=== PATIENT | female | born 2000 | race African-American/Black ===

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

== ENCOUNTER 2018-07-21 17:04 | Emergency (ER) | payer SELFPAY ==
[~2018-07-21] VITALS: Ht 160 cm; Wt 53.5 kg
[~2018-07-21 17:04] MED LIST: FLUT9.9S NS; NAPR-683 PO; ONDA4TAB7 PO
[2018-07-21 17:29] VITALS: BP 113/57
--- NOTE | 2018-07-21 17:50 | PHYS DOC ---
Past Medical History Past Medical History: Anxiety Past Surgical History: No Surgical History Alcohol Use: Occasionally Drug Use: Marijuana Adult General Chief Complaint Chief Complaint: VAGINAL PROBLEM HPI HPI Patient is a 18 year old AA female who presents to the emergency room with complaints of low back pain, dysuria, and increased urinary frequency for the last 4 days. She denies any fever, irregular vaginal discharge, or vaginal odor. States that she was reading online and is worried that she may have pelvic inflammatory disease. She denies any abnormal menstrual cycles, states that she took a test this morning and it was negative. She denies any lower abdominal pain reports suprapubic pain that increases after urination. Review of Systems Review of Systems Constitutional: Denies fever or chills [] HENT: Denies nasal congestion or sore throat [] Respiratory: Denies cough or shortness of breath [] GI: Denies abdominal pain, nausea, vomiting, or diarrhea [] : Denies irregular vaginal discharge, vaginal bleeding, vaginal odor, or vaginal itching. Reports suprapubic pain, increased urinary frequency, and dysuria. Musculoskeletal: Reports low back pain Integument: Denies rash or skin lesions [] Neurologic: Denies headache, focal weakness or sensory changes [] All other systems were reviewed and found to be within normal limits, except as documented in this note. Allergies Allergies Allergies Coded Allergies Type Severity Reaction Last Updated Verified No Known Drug Allergies 09/09/17 No Physical Exam Physical Exam Constitutional: Well developed, well nourished, no acute distress, non-toxic appearance. [] HENT: Normocephalic, atraumatic, bilateral external ears normal, oropharynx moist, no oral exudates, nose normal. [] Eyes: PERRLA, conjunctiva normal, no discharge. [] Cardiovascular:Heart rate regular rhythm, no murmur [] Lungs & Thorax: Bilateral breath sounds clear to auscultation [] Abdomen: Bowel sounds normal, soft, no masses, no pulsatile masses; suprapubic tenderness with palpation Skin: Warm, dry, no erythema, no rash. [] Back: No tenderness, no CVA tenderness. [] Extremities: No cyanosis, no clubbing, ROM intact, no edema. [] Neurologic: Alert and oriented X 3, normal motor function, normal sensory function, no focal deficits noted. [] Psychologic: Affect normal, judgement normal, mood normal. [] Current Patient Data Vital Signs Vital Signs Date Time Temp Pulse Resp B/P (MAP) Pulse Ox O2 Delivery O2 Flow Rate FiO2 07/21/18 17:29 97.9 99 18 113/57 (75) 100 Room Air 97.9 Lab Values Laboratory Tests Test 07/21/18 17:39 07/21/18 17:43 Urine Collection Type Unknown Urine Color Yellow Urine Clarity Clear Urine pH 7.0 Urine Specific [place] 1.015 Urine Protein Negative mg/dL (NEG-TRACE) Urine Glucose (UA) Negative mg/dL (NEG) Urine Ketones (Stick) Negative mg/dL (NEG) Urine Blood Negative (NEG) Urine Nitrite Negative (NEG) Urine Bilirubin Negative (NEG) Urine Urobilinogen Dipstick 1.0 mg/dL (0.2 mg/dL) Urine Leukocyte Esterase Moderate (NEG) Urine RBC 0 /HPF (0-2) Urine WBC 11-20 /HPF (0-4) Urine Squamous Epithelial Cells Mod /LPF Urine Amorphous Sediment Present /HPF Urine Bacteria Few /HPF (0-FEW) POC Urine HCG, Qualitative Hcg negative (Negative) EKG EKG [] Radiology/Procedures Radiology/Procedures [] Course & Med Decision Making Course & Med Decision Making Pertinent Labs and Imaging studies reviewed. (See chart for details) DX: UTI Prescription written for bactrim DS and pyridium. Increase clear fluids, avoid bladder irritants. Follow up with PCP if symptoms persist, return to ER if symptoms worsen. [] Dragon Disclaimer Dragon Disclaimer This electronic medical record was generated, in whole or in part, using a voice recognition dictation system. Departure Departure Impression: Primary Impression: UTI (urinary tract infection) Disposition: 01 HOME, SELF-CARE Condition: STABLE Referrals: NO PCP (PCP) Patient Instructions: Urinary Tract Infection, [id number] Additional Instructions: Increase clear fluids, avoid bladder irritants such as caffeine, carbonation, and spicy foods. Fill prescriptions and use as directed. Follow-up with primary care doctor if her symptoms persist. Return to the ER if symptoms worsen. Scripts Phenazopyridine Hcl (PYRIDIUM) 100 Mg Tablet 100 MG PO TID for 3 Days, #9 TAB 0 Refills Prov: BHUPINDER MCDERMOTT APRN 07/21/18 Sulfamethoxazole/Trimethoprim (BACTRIM DS TABLET) 1 Each Tablet 1 TAB PO BID for 3 Days, #6 TAB Prov: BHUPINDER MCDERMOTT SYSTEMATIC THEOLOGY PROFESSOR 07/21/18 Problem Qualifiers Primary Impression: UTI (urinary tract infection) Urinary tract infection type: site unspecified Hematuria presence: without hematuria Qualified Codes: N39.0 - Urinary tract infection, site not specified BHUPINDER MCDERMOTT SYSTEMATIC THEOLOGY PROFESSOR Jul 21, 2018 17:50
[2018-07-21 17:55] LABS: BILIRUBIN,URINE NEGATIVE (NEG); CLARITY,URINE CLEAR; COLOR,URINE YELLOW; NITRITE,URINE NEGATIVE (NEG); PROTEIN,URINE NEGATIVE (NEG-TRACE)
[2018-07-21 18:08] LABS: AMORPHOUS SEDIMENT,UR PRESENT /HPF; BACTERIA,URINE FEW /HPF (0-FEW); RBC,URINE 0 /HPF (0-2); SQUAMOUS EPITHELIAL CELL,UR MOD /LPF
[2018-07-21] MEDS ORDERED: SULF1TAB24 PO (18:24)
[2018-07-21] MEDS ORDERED: PHEN100T82 PO (18:24)
== END 2018-07-21 19:24 | disposition home or self-care (01) ==
LOC: ER 17:04
DX: N39.0 Urinary tract infection, site not specified (principal)
CPT/HCPCS: 81001; 81025; 87086; 99284

== ENCOUNTER 2018-09-16 09:30 | Emergency (ER) | payer SELFPAY ==
[~2018-09-16] VITALS: Ht 157.5 cm; Wt 56.7 kg
[~2018-09-16 09:30] MED LIST changes: +PHEN100T82 PO; +SULF1TAB24 PO
[2018-09-16 09:32] VITALS: BP 105/55
[2018-09-16] MEDS ORDERED: AZITHROMYCIN 250 MG TABLET. PO ONE (10:45)
[2018-09-16] MEDS ORDERED: cefTRIAXone IM 250 MG VIAL IM ONE (10:45)
[2018-09-16 10:53] LABS: BILIRUBIN,URINE NEGATIVE (NEG); CLARITY,URINE CLEAR; COLOR,URINE YELLOW; NITRITE,URINE NEGATIVE (NEG); PH,URINE 6.5; PROTEIN,URINE NEGATIVE (NEG-TRACE)
[2018-09-16 10:57] LABS: BACTERIA,URINE MODERATE /HPF (0-FEW); RBC,URINE 0 /HPF (0-2); SQUAMOUS EPITHELIAL CELL,UR FEW /LPF
[2018-09-16] MEDS ORDERED: SULF1TAB24 PO (11:37)
--- NOTE | 2018-09-16 11:38 | PHYS DOC ---
Past Medical History Past Medical History: No Pertinent History, Anxiety Past Surgical History: No Surgical History Additional Information: 2 ppd Alcohol Use: Rarely Drug Use: Marijuana Adult General Chief Complaint Chief Complaint: PAIN ON URINATION [facility] HPI Patient is a 18 year old female who presents with pain with urination, sores around her vagina and vaginal discharge. She denies abdominal pain or fever. She denies nausea or vomiting. She denies possibility of . Review of Systems Review of Systems Constitutional: Denies fever or chills [] Respiratory: Denies cough or shortness of breath [] Cardiovascular: No additional information not addressed in HPI [] GI: See history of present illness : See history of present illness Musculoskeletal: Denies back pain or joint pain [] Integument: Denies rash or skin lesions [] Neurologic: Denies headache, focal weakness or sensory changes [] Endocrine: Denies polyuria or polydipsia [] All other systems were reviewed and found to be within normal limits, except as documented in this note. Current Medications Current Medications Current Medications Medications (Trade) Dose Ordered Sig/Elliot Start Time Stop Time Status Last Admin Dose Admin Azithromycin (Zithromax) 1,000 mg 1X ONCE 09/16/18 10:45 09/16/18 10:46 DC 09/16/18 10:52 1,000 MG Ceftriaxone Sodium (Rocephin Im) 250 mg 1X ONCE 09/16/18 10:45 09/16/18 10:46 DC 09/16/18 10:52 250 MG Allergies Allergies Allergies Coded Allergies Type Severity Reaction Last Updated Verified No Known Drug Allergies 09/09/17 No Physical Exam Physical Exam Constitutional: Well developed, well nourished, no acute distress, non-toxic appearance. [] Cardiovascular:Heart rate regular rhythm, no murmur [] Lungs & Thorax: Bilateral breath sounds clear to auscultation [] Abdomen: Bowel sounds normal, soft, no tenderness, no masses, no pulsatile masses. [] Skin: Warm, dry, no erythema, no rash. [] Back: No tenderness, no CVA tenderness. [] Extremities: No tenderness, no cyanosis, no clubbing, ROM intact, no edema. [] Neurologic: Alert and oriented X 3, normal motor function, normal sensory function, no focal deficits noted. [] Psychologic: Affect normal, judgement normal, mood normal. [] Current Patient Data Vital Signs Vital Signs Date Time Temp Pulse Resp B/P (MAP) Pulse Ox O2 Delivery O2 Flow Rate FiO2 09/16/18 09:32 99.1 109 20 105/55 (72) 98 Room Air 99.1 Lab Values Laboratory Tests Test 09/16/18 09:40 09/16/18 09:50 Urine Collection Type Void Urine Color Yellow Urine Clarity Clear Urine pH 6.5 Urine Specific [place] 1.025 Urine Protein Negative mg/dL (NEG-TRACE) Urine Glucose (UA) Negative mg/dL (NEG) Urine Ketones (Stick) 15 mg/dL (NEG) Urine Blood Negative (NEG) Urine Nitrite Negative (NEG) Urine Bilirubin Negative (NEG) Urine Urobilinogen Dipstick 2.0 mg/dL (0.2 mg/dL) Urine Leukocyte Esterase Small (NEG) Urine RBC 0 /HPF (0-2) Urine WBC 11-20 /HPF (0-4) Urine Squamous Epithelial Cells Few /LPF Urine Bacteria Moderate /HPF (0-FEW) Urine Mucus Mod /LPF POC Urine HCG, Qualitative Hcg negative (Negative) Microbiology 09/16/18 Wet Prep - Final, Complete EKG EKG [] Radiology/Procedures Radiology/Procedures [] Pelvic Exam: Printer Technician present Abdomen: Nontender External Genitalia: Small vesicular lesions Speculum: Normal vaginal mucosa, yellow green cervical discharge Bimanual: No adnexal masses or tenderness, No CMT Course & Med Decision Making Course & Med Decision Making Pertinent Labs and Imaging studies reviewed. (See chart for details) []The patient was given Rocephin and Zithromax in the emergency department. Dragon Disclaimer Dragon Disclaimer This electronic medical record was generated, in whole or in part, using a voice recognition dictation system. Departure Departure Impression: Primary Impression: UTI (urinary tract infection) Additional Impression: STD exposure Referrals: NO PCP (PCP) Patient Instructions: Urinary Tract Infection Additional Instructions: We will call with the results of your cultures. Take the antibiotic as directed for treatment of your urinary tract infection. Follow-up with your primary care provider or return to the emergency department if worsening. Scripts Sulfamethoxazole/Trimethoprim (BACTRIM DS TABLET) 1 Each Tablet 1 TAB PO BID for UTI, #14 TAB Prov: DANY SUAREZ APRN 09/16/18 Problem Qualifiers DANY SUAREZ APRN Sep 16, 2018 11:38
[2018-09-17 13:19] LABS: GC PROBE Negative (Negative)
== END 2018-09-16 11:38 | disposition home or self-care (01) ==
LOC: ER 09:30
DX: N39.0 Urinary tract infection, site not specified (principal); F41.9 Anxiety disorder, unspecified; Z20.2 Contact with and (suspected) exposure to infections with a predominantly sexual mode of transmission
CPT/HCPCS: 81001; 81025; 87086; 87252; 87491; 87591; 96372; 99283; J0696; Q0111; Q0144

== ENCOUNTER 2020-02-15 15:22 | Emergency (ER) | payer SELFPAY ==
[~2020-02-15] VITALS: Ht 160 cm; Wt 51.3 kg
--- NOTE | 2020-02-15 16:24 | PHYS DOC ---
Past Medical History Past Medical History: Anxiety Past Surgical History: No Surgical History Smoking Status: Current Every Day Smoker Additional Information: PT REPORTS 2 CIGARETTES/ DAY Alcohol Use: None Drug Use: Marijuana General Adult EDM: Chief Complaint: ABDOMINAL PAIN IN HPI: HPI: Patient is a 20 year old female who presents to ER today for evaluation of left-sided abdominal pain started 2 days ago. Patient says she is about 7 weeks , her last menstrual period Was on December 05. This is her third . Patient has not seen an [facility] doctor yet. Patient denies any nausea vomiting, no fever. Patient denies any chest pain, no trouble breathing. Patient denies any vaginal bleeding. Review of Systems: Review of Systems: Constitutional: Denies fever or chills. [] Eyes: Denies change in visual acuity. [] HENT: Denies nasal congestion or sore throat. [] Respiratory: Denies cough or shortness of breath. [] Cardiovascular: Denies chest pain or edema. [] GI: Denies abdominal pain, nausea, vomiting, bloody stools or diarrhea. [] : No vaginal bleeding, no vaginal discharge, positive for left-sided pelvic pain. [] Musculoskeletal: Denies back pain or joint pain. [] Integument: Denies rash. [] Neurologic: Denies headache, focal weakness or sensory changes. [] Endocrine: Denies polyuria or polydipsia. [] Lymphatic: Denies swollen glands. [] Psychiatric: Denies depression or anxiety. [] Heart Score: Risk Factors: Risk Factors: DM, Current or recent (<one month) smoker, HTN, HLP, family history of CAD, obesity. Risk Scores: Score 0 - 3: 2.5% MACE over next 6 weeks - Discharge Home Score 4 - 6: 20.3% MACE over next 6 weeks - Admit for Clinical Observation Score 7 - 10: 72.7% MACE over next 6 weeks - Early Invasive Strategies Allergies: Allergies: Allergies Coded Allergies Type Severity Reaction Last Updated Verified No Known Drug Allergies 09/09/17 No Physical Exam: PE: Constitutional: Well developed, well nourished, no acute distress, non-toxic appearance. [] HENT: Normocephalic, atraumatic, bilateral external ears normal, oropharynx moist, no oral exudates, nose normal. [] Eyes: PERRLA, EOMI, conjunctiva normal, no discharge. [] Neck: Normal range of motion, no tenderness, supple, no stridor. [] Cardiovascular:Heart rate regular rhythm, no murmur [] Lungs & Thorax: Bilateral breath sounds clear to auscultation [] Abdomen: Bowel sounds normal, soft, no tenderness, no masses, no pulsatile ronna s. There is left lower abdominal tenderness to palpation. No rebound, no guarding. Skin: Warm, dry, no erythema, no rash. [] Back: No tenderness, no CVA tenderness. [] Extremities: No tenderness, no cyanosis, no clubbing, ROM intact, no edema. [] Neurologic: Alert and oriented X 3, normal motor function, normal sensory function, no focal deficits noted. [] Psychologic: Affect normal, judgement normal, mood normal. [] Current Patient Data: Labs: Laboratory Tests Test 02/15/20 15:39 POC Urine HCG, Qualitative Hcg positive (Negative) Vital Signs: Vital Signs Date Time Temp Pulse Resp B/P (MAP) Pulse Ox O2 Delivery O2 Flow Rate FiO2 02/15/20 15:55 98.2 95 20 118/59 (78) 100 Room Air 98.2 EKG: EKG: [] Radiology/Procedures: Radiology/Procedures: [][facility] [address] [place] [address] IMAGING REPORT Signed PATIENT: JORDEN VEGA ACCOUNT: [id number] : 2000 LOCATION: ER AGE: 20 SEX: F EXAM STATUS: REG ER ORD. PHYSICIAN: TEE LORA DO REASON: left side pelvic pain, 7 weeks PROCEDURE: PREG 1ST TRIMESTER Examination: Obstetric ultrasound first trimester HISTORY: History of left-sided pelvic pain Comparison: None available. FINDINGS: The uterus measures 8.9 x 6.0 x 8.1 cm. The right ovary measures 9.4 x 6.0 x 1.1 cm. The left ovary measures 3.2 x 2.0 x 3.1 cm. Bilateral ovarian cysts identified with largest measuring 6.5 cm on the right which could be septated.The left ovarian cyst measures 2.1 cm. Blood flow identified in the right and left ovaries. Single living intrauterine identified with heart rate of 171 beats per minute. The crown-rump measures 2.9 cm corresponding to 9 weeks and 6 days. LMP 12/03/2019 Clinical age is 10 weeks and 4 days with estimated delivery by LMP 09/08/2020. Ultrasound age is 9 weeks and 6 days with date of delivery by ultrasound 09/13/2020. IMPRESSION: 1. Single living intrauterine described above. 2. Bilateral ovarian cysts or cystic lesions with the largest measuring 6.5 cm in the right and 2.1 cm in the left. Follow-up examination is recommended to document stability. Electronically signed by: John Waldrop MD (02/15/2020 5:31 PM) [id number] DICTATED and SIGNED BY: JOHN WALDROP MD DATE: 02/15/20 1731 Course & Med Decision Making: Course & Med Decision Making Pertinent Labs and Imaging studies reviewed. (See chart for details) Patient is a 20-year-old female who was evaluated in the ER today due to left- sided pelvic pain, she is . Ultrasound of her pelvic did not show that she had an IUP, and she also had multiple ovarian cysts on the left side and the right side. Patient is in no acute distress, she actually did not require require any pain medication. Her lab work was within normal limits. Patient will be discharged home, she will need to follow-up with her [facility] doctor for care. Patient is amenable to plan of care. Dragon Disclaimer: Dragon Disclaimer: This electronic medical record was generated, in whole or in part, using a voice recognition dictation system. Departure Departure Impression: Primary Impression: Pelvic pain in Additional Impression: Ovarian cyst Disposition: 01 HOME, SELF-CARE Condition: STABLE Referrals: NO PCP (PCP) MARIE MOCTEZUMA MD PLEASE CALL THIS [facility] DOCTOR FOR FOLLOW UP THIS WEEK. Patient Instructions: ABCs of , Abdominal Pain During TEE LORA DO February 15, 2020 16:24
[2020-02-15 16:32] LABS: BILIRUBIN,URINE NEGATIVE (NEG); CLARITY,URINE CLEAR; COLOR,URINE YELLOW; NITRITE,URINE NEGATIVE (NEG); PROTEIN,URINE NEGATIVE (NEG-TRACE)
[2020-02-15 16:37] LABS: BACTERIA,URINE MODERATE /HPF (0-FEW); RBC,URINE 0 /HPF (0-2); SQUAMOUS EPITHELIAL CELL,UR MANY /LPF
[2020-02-15 16:43] LABS: BASO % 1 % (0-3); EOS # 0.1 x10^3/uL (0.0-0.7); EOS % 1 % (0-3); HEMATOCRIT 39.7 % (36.0-47.0); HEMOGLOBIN 13.8 g/dL (12.0-15.5); LYMPH # 1.4 x10^3/uL (1.0-4.8); LYMPH % 21 % (24-48); MEAN CORPUSCULAR HEMOGLOBIN 32 pg (25-35); MEAN CORPUSCULAR HGB CONC 35 g/dL (31-37); MEAN CORPUSCULAR VOLUME 91 fL (79-100); MONO # 0.3 x10^3/uL (0.0-1.1); MONO % 5 % (0-9); NEUT # 4.8 x10^3/uL (1.8-7.7); NEUT % 73 % (31-73); PLATELET COUNT 279 x10^3/uL (140-400); RED BLOOD COUNT 4.36 x10^6/uL (3.50-5.40); WHITE BLOOD COUNT 6.6 x10^3/uL (4.0-11.0)
[2020-02-15 17:30] LABS: CALCIUM 9.1 mg/dL (8.5-10.1); CREATININE 0.7 mg/dL (0.6-1.0); GFR 126.6; POTASSIUM 3.6 mmol/L (3.5-5.1)
--- NOTE | 2020-02-15 17:34 | RAD ---
Examination: Obstetric ultrasound first trimester HISTORY: History of left-sided pelvic pain Comparison: None available. FINDINGS: The uterus measures 8.9 x 6.0 x 8.1 cm. The right ovary measures 9.4 x 6.0 x 1.1 cm. The left ovary measures 3.2 x 2.0 x 3.1 cm. Bilateral ovarian cysts identified with largest measuring 6.5 cm on the right which could be septated.The left ovarian cyst measures 2.1 cm. Blood flow identified in the right and left ovaries. Single living intrauterine identified with heart rate of 171 beats per minute. The crown-rump measures 2.9 cm corresponding to 9 weeks and 6 days. LMP 12/03/2019 Clinical age is 10 weeks and 4 days with estimated delivery by LMP 09/08/2020. Ultrasound age is 9 weeks and 6 days with date of delivery by ultrasound 09/13/2020. IMPRESSION: 1. Single living intrauterine described above. 2. Bilateral ovarian cysts or cystic lesions with the largest measuring 6.5 cm in the right and 2.1 cm in the left. Follow-up examination is recommended to document stability. Electronically signed by: John Waldrop MD (02/15/2020 5:31 PM) [id number]
[2020-02-15 17:36] LABS: ALBUMIN 3.3 g/dL (3.4-5.0); ALBUMIN/GLOBULIN RATIO 0.8 (1.0-1.7); TOTAL BILIRUBIN 0.4 mg/dL (0.2-1.0); TOTAL PROTEIN 7.3 g/dL (6.4-8.2)
[2020-02-15 18:30] VITALS: BP 116/78
== END 2020-02-15 18:40 | disposition home or self-care (01) ==
LOC: ER 15:22
DX: O34.81 Maternal care for other abnormalities of pelvic organs, first trimester (principal); O99.331 Smoking (tobacco) complicating pregnancy, first trimester; N83.202 Unspecified ovarian cyst, left side; N83.201 Unspecified ovarian cyst, right side; R10.2 Pelvic and perineal pain; F41.9 Anxiety disorder, unspecified; F17.210 Nicotine dependence, cigarettes, uncomplicated; F12.90 Cannabis use, unspecified, uncomplicated; Z3A.09 9 weeks gestation of pregnancy
CPT/HCPCS: 36415; 76801; 80053; 81001; 81025; 84702; 85025; 86900; 86901; 87086; 99284